=== PATIENT | female | born 1955 | race Caucasian/White ===

== ENCOUNTER 2020-01-05 16:31 | Observation (INO) ==
[2020-01-05 17:44] LABS: Troponin I 0.047 NG/ML (0.00-0.045)
[2020-01-05] MEDS ORDERED: DILTIAZEM 50 MG/10 ML VIAL IV STA (18:01)
[2020-01-05] MEDS ORDERED: SODIUM CHLORIDE 0.9% 1,000 ML IV STA (18:01)
[2020-01-05 18:37] LABS: Basophils # 0.1 10*3/uL (0.0-0.2); Basophils % 0.7 % (0.0-0.8); Eosinophils # 0.2 10*3/uL (0.0-0.87); Eosinophils % 2.4 % (0.00-10.9); Hematocrit 35.3 VOL% (35.7-47.0); Hemoglobin 11.8 GM/DL (12.0-16.0); Immature Granulocytes % 0.3 %; Immature Granulocytes Absolute 0.02 #; Lymphocytes # 2.5 10*3/uL (1.4-4.0); Lymphocytes % 33.3 % (21.3-54.2); Mean Corpuscular HGB Conc 33.4 GM/DL (32-36); Mean Corpuscular Volume 89.8 FL (87-102); Mean Platelet Volume 11.5 FL (9.6-12.0); Monocytes % 5.3 % (1.7-12.7); Platelet Count 258 T/CUMM (130-400); Red Blood Count 3.93 MC/CUMM (3.8-5.5); Red Cell Distribution Width 13.5 % (9.3-17.3); White Blood Count 7.4 T/CUMM (4-12)
[2020-01-05 18:44] LABS: INR 0.9; PT Patient Result 10.2 SECS (9.8-11.9)
[2020-01-05 19:01] LABS: Albumin 3.8 G/DL (3.4-5.0); Bilirubin,Total 0.4 MG/DL (0.2-1.0); Calcium 8.8 MG/DL (8.5-10.1); Osmolality,Calculated 285.1 MOS/KG (273-304); Total Protein 7.1 G/DL (6.4-8.3)
[2020-01-05] MEDS ORDERED: dilTIAZem Drip 125 MG/125 ML PREMIX IV SCH (19:30)
[2020-01-05] MEDS ORDERED: ACETAMINOPHEN 325 MG TABLET PO PRN (19:55)
[2020-01-05] MEDS ORDERED: ZALEPLON 5 MG CAPSULE PO PRN (19:55)
[2020-01-05] MEDS ORDERED: ONDANSETRON 4 MG/2 ML VIAL IV PRN (19:55)
[2020-01-05] MEDS ORDERED: GLUCAGON 1 MG VIAL IM PRN (19:55)
[2020-01-05] MEDS ORDERED: DEXTROSE 50% 25 GM/50 ML VIAL IV PRN (19:55)
[2020-01-05] MEDS ORDERED: ENOXAPARIN 100 MG/ML SYRINGE SUBCUT SCH (21:00)
[2020-01-05] MEDS ORDERED: EZETIMIBE 10 MG TABLET PO SCH (21:00)
[2020-01-06 07:42] LABS: Albumin 3.3 G/DL (3.4-5.0); Bilirubin,Total 0.7 MG/DL (0.2-1.0); Calcium 8.9 MG/DL (8.5-10.1); Osmolality,Calculated 279.4 MOS/KG (273-304); Total Protein 6.7 G/DL (6.4-8.3)
[2020-01-06 08:08] VITALS: BP 118/59
[2020-01-06] MEDS ORDERED: POTASSIUM CHLORIDE 20 MEQ TABLET PO ONE (08:39)
[2020-01-06] MEDS ORDERED: MAGNESIUM SULF RIDER 2 GM in PREMIX 1 EACH IV ONE (08:40)
[2020-01-06] MEDS ORDERED: APIXABAN 5 MG TABLET PO SCH (09:00)
[2020-01-06] MEDS ORDERED: PANTOPRAZOLE 40 MG TABLET PO SCH (09:00)
[2020-01-06] MEDS ORDERED: ASPIRIN EC 81 MG TABLET PO SCH (09:00)
[2020-01-06] MEDS ORDERED: DILTIAZEM CD 120 MG CAPSULE PO SCH (09:00)
[2020-01-06 09:05] LABS: Risk Ratio 4.74; VLDL CHOLESTEROL 32.4 MG/DL
[2020-01-06] MEDS ORDERED: INFLUENZA VIRUS VACCINE 0.5 ML SYRINGE IM ONE (11:06)
== END 2020-01-06 12:30 | disposition home or self-care (01) ==
LOC: N.ED 16:31 → INTOOBSV 19:55 → N.EDINP 19:55 → N.TELEN 20:50
PROVIDERS: ADMIT Family Medicine; ATTEND Family Medicine